=== PATIENT | male | born 1955 | race Caucasian/White ===

== ENCOUNTER 2018-03-25 16:07 | Outpatient (CLI) | payer MEDICAID, SELFPAY ==
[2018-03-25 16:30] LABS: Abs Immature Grans 0.04 k/cumm (0.0-0.09); Absolute Basophil Count 0.03 k/cumm (0.0-0.2); Absolute Eosinophil Count 0.07 k/cumm (0.0-0.7); Absolute Lymphocyte Count 1.36 k/cumm (1.2-3.4); Absolute Monocyte Count 0.53 k/cumm (0.11-0.7); Absolute Neutrophil Count 6.01 k/cumm (1.2-6.7); Basophils % 0.4; Eosinophils % 0.9; HGB 14.5 g/dL (13.5-17.5); Immature Grans % 0.5; Lymphocytes % 16.9; Mean Corpuscular Hemoglobin 29.1 pg (27.0-33.0); Mean Corpuscular Volume 88.2 fL (80-95); Mean Platelet Volume 10.4 fL (8.0-11.0); Monocytes % 6.6; Neutrophils % 74.7; Platelet Count 151 x1000/uL (130-400); RBC 4.99 m/cumm (4.50-6.00); RBC Distribution Width 14.1 % (11.8-14.1); White Blood Cell Count 8.04 k/cumm (4.4-10.8)
[2018-03-25 17:47] LABS: ALT 47 U/L (12-78); AST 24 U/L (15-37); Albumin 4.1 g/dL (3.4-5.0); Alkaline Phosphatase 81 U/L (46-116); Anion Gap 9.1 mmol/L (3-11); BUN 18 mg/dL (7-18); Bilirubin, Total 0.3 mg/dL (0.2-1.0); CO2 31.9 mmol/L (21.0-32.0); CREATININE 1.05 mg/dL (0.70-1.30); Calcium 9.3 mg/dL (8.5-10.1); Chloride 101 mmol/L (98-107); Glucose 88 mg/dL (70-100); Sodium 142 mmol/L (136-145); Total Protein 7.9 g/dL (6.4-8.2)
== END 2018-03-25 16:27 ==
PROVIDERS: PCP Family Medicine; Visit Provider Family Medicine
DX: Z01.812 Encounter for preprocedural laboratory examination (principal)
CPT/HCPCS: 36415; 80048; 80076; 85025

== ENCOUNTER 2018-03-25 17:48 | Outpatient (CLI) | payer MEDICAID, SELFPAY ==
--- NOTE | 2018-03-25 15:29 | PFT_ITS ---
REQUESTING PROVIDER: Mian Quintana M.D. Spirometry shows borderline mild obstructive airways disease which may represent a normal variant. No significant bronchodilator response. Lung volumes show no evidence of restriction. Diffusion capacity mildly reduced even when corrected to alveolar volume. Airways resistance normal. IMPRESSION: Possible borderline mild obstructive airways disease. However, this may represent a normal variant. There is no bronchodilator response. This is associated with very mild diffusion defect. Clinical correlation recommended. See scanned document for images. SEE SCANNED DOCUMENT IN THE EMR FOR DATA AND GRAPHS
[2018-03-26] MEDS: Inhaler, Assist Device 1 EACH MC (10:50)
[2018-03-26] MEDS: Albuterol HFA 18 GM 200 PUFF INH IH (10:50)
== END 2018-03-25 18:08 ==
PROVIDERS: PCP Family Medicine; Visit Provider Family Medicine
DX: R69 Illness, unspecified (principal); Z01.818 Encounter for other preprocedural examination

== ENCOUNTER 2018-03-26 01:12 | Outpatient (CLI) | payer MEDICAID, SELFPAY ==
--- NOTE | 2018-03-26 09:30 | DI.RAD_ITS ---
SYMPTOMS/DIAGNOSIS: PRE OP EXAM, Z01.818 PA AND LATERAL CHEST: Comparison 05/29/16. The heart size and pulmonary vasculature are within normal limits. The lungs are clear. They do appear to be hyperinflated with flattened diaphragms suggesting underlying COPD. No infiltrates, effusions or pneumothoraces are identified. Degenerative changes are present in the spine. IMPRESSION: COPD. No acute pulmonary process.
== END 2018-03-26 01:32 ==
PROVIDERS: PCP Family Medicine; Visit Provider Family Medicine
DX: J44.9 Chronic obstructive pulmonary disease, unspecified (principal); Z01.818 Encounter for other preprocedural examination
CPT/HCPCS: 94060; 94150; 94726; 94729; 71046

== ENCOUNTER 2018-12-13 21:05 | Emergency (ER) | payer SELFPAY ==
[2018-12-13] VITALS (25 sets, daily range): BP systolic 128–158; BP diastolic 57–81; PULSE 49–104; RESP 13–46; TEMP 36.8; O2SAT 94–98
--- NOTE | 2018-12-13 21:13 | W.ED.GENAD ---
Discharge Plan Disposition Patient Disposition: HOME Discharge Details Chief Complaint: Trauma Clinical Impression: Altered mental status, Opiate misuse, Contusion of left eyelid and periocular area Primary Care Provider: Mian Quintana ED Provider: Dann Spain Meds and New Rx's Prescriptions: Continued diltiazem HCl 120 mg capsule,extended release 24hr 240 mg PO DAILY RF: 0 cyclobenzaprine 10 mg tablet 10 mg PO TID PRN Qty: 30 RF: 3 Discharge Instructions Additional Instructions: There are no broken bones in your face. No evidence of bleed in head. You should avoid alcohol and drugs. Follow up with PCP as well as with [facility]. Return to ED if neurological changes, trouble breathing, other problems. Referrals: Mian Quintana [Primary Care Provider] - Medical Decision Making Patient with evidence of head injury with GCS of 13. Unclear if due to head injury or due to substance use. Pupils are reactive and equal. He is non-focal otherwise. He will not leave a collar on. Very difficult to get an IV due to agitation when trying. Eventually got one in the left AC. Patient ordered for labs, EKG and scans. 23:15 - Patient's scans are essentially negative. Head CT is negative. Facial CT without fracture. Cervical spine negative for fracture. Chest with questionable opacities that might be related to pulmonary contusion. Respiratory rate and saturations are good. No evidence of chest trauma other than old bruise. Labs are unremarkable. Alcohol is 0. Urine not yet obtained to check drug screen. Patient continues to just sleep here, as well as refusing to answer questions for the most part. Vital signs remain normal. 03:15 - Patient did finally urinate. U/A is negative. Drug screen positive for opiates and methadone. Mental status seems a little better. Will continue to observe for return to normal mental status. 07:00 - Patient awakes easily and answers questions until asked but substance use then closes eyes and stops answering questions. He also doesn't answer questions about what happened. He does go to [facility] for methadone. Patient's vitals have been fine including saturations. He has had no respiratory difficulty at all. Patient can be discharged at this time. Medical Records Medical records reviewed: Yes I reviewed the patient's medical records. Lab Data Lab results reviewed: Yes I reviewed the patient's lab results. ECG Data Attestation: I personally reviewed and interpreted this ECG (s) as follows: Prior ECG tracings: not available for review Interpretation: Sinus rhythm at 62 with normal axis and interval. No acute changes. HPI General Mode of arrival: wheelchair. Date/Time Provider Initiated Documentation: 12/13/18 21:06. Limitations to Documentation: altered mental status. Information obtained by: patient. HPI Narrative: Patient was dropped off by private vehicle as a trauma. No further details available. Patient is brought in in a wheelchair. He is awake and somewhat verbal. States he woke up this way. Unable to tell us what happened. Has large left eye ecchymosis and swelling. Does not answer whether he had been using drugs or alcohol last night or today. Old records state that he has a previous history of polysubstance abuse including IV drugs. Related Data Home Medications Medication Instructions Recorded Confirmed diltiazem CD 120 mg 240 mg PO DAILY cap 03/08/18 03/25/18 capsule,extended release 24 hr cyclobenzaprine 10 mg tablet 10 mg PO TID PRN #30 tab 04/08/18 Previous Rx's Medication Instructions Recorded cyclobenzaprine 10 mg tablet 10 mg PO TID PRN #30 tab 04/08/18 Allergies Allergy/AdvReac Type Severity Reaction Status Date / Time codeine Allergy Unknown itchy/red Unverified 03/25/18 13:39 Sulfa (Sulfonamide Allergy Unknown Unverified 03/25/18 13:39 Antibiotics) Review of Systems Review of Systems Unobtainable due to mental status [facility] Medical History HTN (hypertension) (Chronic) Hepatitis C (Chronic) Neuropathy (Chronic) Surgical History H/O cervical spine surgery (Chronic) S/P hernia repair (Inactive) Family History Mother Essential hypertension Neoplasm Father No problems noted. Sister No problems noted. Grandfather No problems noted. Grandfather No problems noted. Grandmother Heart disease Grandmother Neoplasm Social History Smoking/Tobacco Use Status: Current every day Tobacco Type: cigarettes Alcohol Intake: current Drug use: Current Sobriety Substance use type: former substance user Date of last use: IVDU,HEROIN current occupation: Landlord Pets and animals: No Frequency: does not exercise Xiomara/Yarsanism: Buddhist Special xiomara needs: No Do you feel safe in your relationship?: Yes Exam Narrative Exam Narrative: Vitals: Afebrile. Mild tachycardia with elevated blood pressure. Const: WDWN male in wheelchair seemingly confused. HEENT: NC/AT. TMs clear B. Nose without epistaxis. L eye ecchymosis and swelling. Oropharynx with poor dentition. No obvious oral trauma. Eyes: Normal conjunctiva and sclera. Pupils about 3 mm and reactive/equal. Neck: Supple. Trachea midline. No cervical spine tenderness. Scar from previous surgery. Lungs: Normal respiratory effort. Lungs are clear. No chest wall tenderness. Old bruising noted. Cor: RRR without murmur/gallop. Good radial pulses. GI: Soft. NT/ND. No guarding or rebound. Back: No spine tenderness or obvious trauma. Neuro: GCS 13. Follows some commands and answers some questions. CN appear to be intact and he has 5/5 strength. Ext: No C/C/E. No deformity or tenderness. Track wilson bilateral UE. Skin: Warm and dry without lacerations/abrasions noted.
[2018-12-13 21:30] LABS: Abs Immature Grans 0.01 k/cumm (0.0-0.09); Absolute Basophil Count 0.01 k/cumm (0.0-0.2); Absolute Eosinophil Count 0.01 k/cumm (0.0-0.7); Absolute Lymphocyte Count 0.67 k/cumm (1.2-3.4); Absolute Monocyte Count 1.11 k/cumm (0.11-0.7); Absolute Neutrophil Count 9.74 k/cumm (1.2-6.7); Basophils % 0.1; Eosinophils % 0.1; HCT 46.3 % (40.0-50.0); HGB 15.7 g/dL (13.5-17.5); Immature Grans % 0.1; Lymphocytes % 5.8; Mean Corp. HGB Concentration 33.9 g/dL (32.0-36.0); Mean Corpuscular Hemoglobin 28.6 pg (27.0-33.0); Mean Corpuscular Volume 84.5 fL (80-95); Monocytes % 9.6; Neutrophils % 84.3; Platelet Count 174 x1000/uL (130-400); RBC 5.48 m/cumm (4.50-6.00); RBC Distribution Width 13.3 % (11.8-14.1); White Blood Cell Count 11.55 k/cumm (4.4-10.8)
[2018-12-13 21:42] LABS: Magnesium 2.4 mg/dL (1.8-2.4)
[2018-12-13 21:47] LABS: ALT 49 U/L (12-78); AST 43 U/L (15-37); Albumin 4.3 g/dL (3.4-5.0); Alkaline Phosphatase 88 U/L (46-116); Anion Gap 12.4 mmol/L (3-11); BUN 27 mg/dL (7-18); Bilirubin, Total 1.7 mg/dL (0.2-1.0); CO2 27.6 mmol/L (21.0-32.0); CREATININE 1.14 mg/dL (0.70-1.30); Calcium 9.7 mg/dL (8.5-10.1); Chloride 100 mmol/L (98-107); Glucose 103 mg/dL (70-100); Potassium 4.2 mmol/L (3.5-5.1); Sodium 140 mmol/L (136-145); Total Protein 8.8 g/dL (6.4-8.2); Troponin I 0.02 ng/mL (0.00-0.06)
[2018-12-13 21:55] LABS: ETHANOL BLOOD < 3.0 mg/dL (<3)
[2018-12-13] MEDS: Omnipaque 350 MG/ML 100 ML BTL IJ (22:09)
--- NOTE | 2018-12-13 22:10 | DI.CT_ITS ---
SYMPTOMS/DIAGNOSIS: UNKNOWN TRAUMA NONCONTRAST HEAD CT: Comparison is made with May,. There is some scalp swelling over the left frontal region, as well as some swelling around the left orbit. There is no evidence of skull fracture. The globe appears intact. No intracranial hemorrhage, mass or infarct is seen. The ventricles are normal in size. The sinuses appear clear. Incidental note is made of a partially empty sella. The mastoid air cells appear clear. IMPRESSION: No acute abnormality. FACIAL CT: There is soft tissue swelling around the left orbit, forehead and left cheek. No fracture is identified. There is mild mucosal thickening of the floors of the maxillary sinuses. IMPRESSION: Soft tissue swelling around the left orbit. CT OF THE CERVICAL SPINE: There is no evidence of a fracture. There is hardware of the posterior elements at C3 through C5. There are prominent anteriorly projecting osteophytes. No acute fracture is seen. There is mild narrowing of the central canal at C5-6. There is bilateral neural foraminal narrowing at multiple levels. IMPRESSION: Degenerative and postsurgical changes. No acute abnormality. CT OF THE CHEST, ABDOMEN AND PELVIS: IV contrast was administered prior to the exam. CHEST CT: There is no evidence of rib fracture or pneumothorax. The lungs show some respiratory motion. There are a few patchy areas near the left hilum, which could represent pulmonary contusion, atelectasis or pneumonia. There are no pleural or pericardial effusions or evidence of adenopathy. The heart size is normal. The aorta is normal in diameter. Degenerative changes are seen in the spine. IMPRESSION: Right perihilar contusion versus infiltrate or atelectasis. ABDOMINAL AND PELVIC CT: There is artifact related to patient arm positioning. The liver, spleen, pancreas, kidneys and adrenals appear intact. A cyst is noted in the left kidney. There is no hydronephrosis or perinephric collection. Diverticulosis is seen in the rectosigmoid. There is no evidence of diverticulitis or appendicitis. There is no free air or free fluid. The bladder is unremarkable. The aorta is normal in diameter. Degenerative disc changes and facet degenerative changes are seen in the lumbar spine. IMPRESSION: No acute abnormality.
[2018-12-13] MEDS: Lactated Ringers 1,000 ML 1000 ML IV (22:14)
[2018-12-13] MEDS: Normal Saline Flush 10 ML SYR IVP (22:14)
--- NOTE | 2018-12-13 22:31 | DI.VRAD_ITS ---
EXAM: CT Head Without Contrast EXAM DATE/TIME: 12/13/2018 9:16 PM CLINICAL HISTORY: 63 years old, male; Injury or trauma; Injury history: Unknown trauma; Initial encounter; Blunt trauma (contusions or hematomas); Consciousness not specified; Eyelid and nose and ocular (eye or eyeball) and orbit/periorbital; Injury details: No known details TECHNIQUE: Imaging protocol: Axial computed tomography images of the head without contrast. Coronal and sagittal reformatted images were created and reviewed. Radiation optimization: All CT scans at this facility use at least one of these dose optimization techniques: automated exposure control; mA and/or kV adjustment per patient size (includes targeted exams where dose is matched to clinical indication); or iterative reconstruction. COMPARISON: CT HEAD AND CSPINE W/O CONTRAST 05/29/2016 12:01 PM FINDINGS: Brain: Mild nonspecific bilateral basal ganglia calcifications. Ventricles: Normal. No ventriculomegaly. Bones/joints: Unremarkable. No acute fracture. Sinuses: Visualized sinuses are unremarkable. No fluid levels. Mastoid air cells: Visualized mastoid air cells are well aerated. No mastoid effusion. Orbits: Partial empty sella with CSF signal fluid filling more than half of the sella and associated decreased pituitary volume with a concave superior surface. Partial empty sella syndrome is an incidental chronic finding which is usually asymptomatic, however it can be associated with idiopathic intracranial hypertension. Soft tissues: Unremarkable. Vasculature: Moderate calcified intracranial atherosclerotic vessel disease. IMPRESSION: Partial empty sella with CSF signal fluid filling more than half of the sella and associated decreased pituitary volume with a concave superior surface. Partial empty sella syndrome is an incidental chronic finding which is usually asymptomatic, however it can be associated with idiopathic intracranial hypertension. No acute intracranial findings. EXAM: CT Maxillofacial Without Contrast EXAM DATE/TIME: 12/13/2018 9:16 PM CLINICAL HISTORY: 63 years old, male; Injury or trauma; Injury history: Unknown trauma; Initial encounter; Blunt trauma (contusions or hematomas); Consciousness not specified; Eyelid and nose and ocular (eye or eyeball) and orbit/periorbital; Injury details: No known details TECHNIQUE: Imaging protocol: Axial computed tomography images of the face without intravenous contrast. Coronal and sagittal reformatted images were created and reviewed. Radiation optimization: All CT scans at this facility use at least one of these dose optimization techniques: automated exposure control; mA and/or kV adjustment per patient size (includes targeted exams where dose is matched to clinical indication); or iterative reconstruction. COMPARISON: CT HEAD AND CSPINE W/O CONTRAST 05/29/2016 12:01 PM FINDINGS: Orbits: No acute intraorbital abnormality. Globes are unremarkable. Sinuses: Mild right maxillary sinus disease which is probably odontogenic. Bones/joints: No acute fracture. Soft tissues: Soft tissue swelling and/or hematoma over the left cheek, orbit and forehead. IMPRESSION: 1. Soft tissue swelling and/or hematoma over the left cheek, orbit and forehead. 2. Mild right maxillary sinus disease which is probably odontogenic. EXAM: CT Cervical Spine Without Contrast EXAM DATE/TIME: 12/13/2018 9:16 PM CLINICAL HISTORY: 63 years old, male; Injury or trauma; Injury history: Unknown trauma; Initial encounter; Blunt trauma (contusions or hematomas); Consciousness not specified; Eyelid and nose and ocular (eye or eyeball) and orbit/periorbital; Injury details: No known details TECHNIQUE: Imaging protocol: Axial computed tomography images of the cervical spine without contrast. Coronal and sagittal reformatted images were created and reviewed. Radiation optimization: All CT scans at this facility use at least one of these dose optimization techniques: automated exposure control; mA and/or kV adjustment per patient size (includes targeted exams where dose is matched to clinical indication); or iterative reconstruction. COMPARISON: CT HEAD AND CSPINE W/O CONTRAST 05/29/2016 12:01 PM FINDINGS: Vertebrae: Mild levoscoliosis. Postoperative metallic fixation of the cervical spine with or without metallic artifact. Discs/Spinal canal/Neural foramina: No acute C-spine findings. Central spinal stenosis at C5-6. Multilevel bilateral foraminal stenosis. Soft tissues: Unremarkable. Trachea: Moderate to severe multilevel degenerative changes including degenerative disc disease, spondylosis and facet degenerative changes. Lungs: Lung apices are normal. IMPRESSION: 1. No acute C-spine findings. 2. Postoperative metallic fixation of the cervical spine with or without metallic artifact. 3. Moderate to severe multilevel degenerative changes including degenerative disc disease, spondylosis and facet degenerative changes. 4. Central spinal stenosis at C5-6. 5. Multilevel bilateral foraminal stenosis. Dictated and Authenticated by: Sina Metz MD. Ordering:RAUL Quigley MD
--- NOTE | 2018-12-13 22:52 | DI.VRAD_ITS ---
EXAM: CT Chest With Contrast EXAM DATE/TIME: 12/13/2018 9:16 PM CLINICAL HISTORY: 63 years old, male; Injury or trauma; Injury history: Unknown trauma; Initial encounter; Generalized; Blunt trauma (contusions or hematomas); Injury details: No known details TECHNIQUE: Imaging protocol: Axial computed tomography images of the chest with intravenous contrast. Coronal and sagittal reformatted images were created and reviewed. Radiation optimization: All CT scans at this facility use at least one of these dose optimization techniques: automated exposure control; mA and/or kV adjustment per patient size (includes targeted exams where dose is matched to clinical indication); or iterative reconstruction. COMPARISON: CT ABD PELVIS WITH CONTRAST 09/27/2012 11:58 AM FINDINGS: Lungs: Opacities in the right lower lobe in in the right perihilar region may represent contusion. (27:32, 33). Pleural space: Unremarkable. No pneumothorax. No pleural effusion. Heart: Unremarkable. No cardiomegaly. No pericardial effusion. Aorta: Unremarkable. No aortic aneurysm. Lymph nodes: Unremarkable. No enlarged lymph nodes. Bones/joints: Unremarkable. No acute fracture. Soft tissues: Unremarkable. IMPRESSION: Opacities in the right lower lobe and in the right perihilar region may represent contusion. (27:32, 33). EXAM: CT Abdomen and Pelvis With Contrast EXAM DATE/TIME: 12/13/2018 9:16 PM CLINICAL HISTORY: 63 years old, male; Injury or trauma; Injury history: Unknown trauma; Initial encounter; Generalized; Blunt trauma (contusions or hematomas); Injury details: No known details TECHNIQUE: Imaging protocol: Axial computed tomography images of the abdomen and pelvis with intravenous contrast. Coronal and sagittal reformatted images were created and reviewed. Radiation optimization: All CT scans at this facility use at least one of these dose optimization techniques: automated exposure control; mA and/or kV adjustment per patient size (includes targeted exams where dose is matched to clinical indication); or iterative reconstruction. Contrast material: [id number]; Contrast volume: 100 ml; Contrast route: IV 20G LT AC; COMPARISON: CT ABD PELVIS WITH CONTRAST 09/27/2012 11:58 AM FINDINGS: ABDOMEN: Liver: Normal. No mass. Gallbladder and bile ducts: Normal. No calcified stones. No ductal dilation. Pancreas: Normal. No ductal dilation. Spleen: Normal. No splenomegaly. Adrenals: Normal. No mass. Kidneys and ureters: 2.5 cm cyst in the left kidney Stomach and bowel: Diverticulosis of the rectosigmoid. No diverticulitis. Appendix: No evidence of appendicitis. PELVIS: Bladder: Unremarkable as visualized. Reproductive: Unremarkable as visualized. ABDOMEN and PELVIS: Intraperitoneal space: Normal. No free air. No significant fluid collection. Bones/joints: Mild anteriolisthesis of L4 with respect L5. Broad-based disc bulge, facet hypertrophy, and ligament hypertrophy at L4/L5 consistent with spinal stenosis. Recommend MRI for further evaluation. Broad-based disc bulge at L3/L4. Soft tissues: Unremarkable. Vasculature: Normal. No abdominal aortic aneurysm. Lymph nodes: Normal. No enlarged lymph nodes. IMPRESSION: 1. Broad-based disc bulge, facet hypertrophy, and ligament hypertrophy at L4/L5 consistent with spinal stenosis. Recommend MRI for further evaluation. 2. Broad-based disc bulge at L3/L4. Recommend MRI if clinically indicated Dictated and Authenticated by: Elisabeth Hairston MD. Ordering:RAUL Quigley MD
[2018-12-14] VITALS (48 sets, daily range): BP systolic 108–154; BP diastolic 52–111; PULSE 50–101; RESP 9–25; TEMP 36.5; O2SAT 93–100
[2018-12-14 02:33] LABS: Bilirubin Small (Negative); Blood Trace-intact (Negative); Clarity Clear; Glucose Negative (Negative); Ketones 80 mg/dL (Negative); Leukocyte Esterase Negative (Negative); Nitrite Negative (Negative)
[2018-12-14 02:39] LABS: *AMPHETAMINES SCREEN URINE Negative (Negative); *BARBITURATES SCREEN URINE Negative (Negative); *BENZODIAZEPINES SCREEN URINE Negative (Negative); Cannabinoids THC Negative (Negative); Cocaine Screen,Urine Negative (Negative); METHADONE URINE SCREEN POSITIVE (Negative); OPIATES URINE SCREEN POSITIVE (Negative)
[2018-12-14 02:41] LABS: Bacteria Rare HPF (Negative); C & S Indicated? No; Casts Negative LPF (Negative); Crystals Negative HPF (Negative); Epithelial Cells Rare HPF (Negative); Mucus Negative (Negative); RBC 0-2 (0-2); WBC 0-2 HPF (0-5)
[2018-12-14 02:42] LABS: Tricyclic Antidepressants Negative (Negative)
--- NOTE | 2018-12-14 08:44 | NUR.NOTE ---
pt dc home ambulatory steady gait iv removed vs dc reviewed with pt able to verblize understanding Nursing Note:
== END 2018-12-14 08:25 | disposition home or self-care (01) ==
PROVIDERS: Emergency Provider Emergency Medicine; PCP Family Medicine
DX: R41.82 Altered mental status, unspecified (principal); F11.10 Opioid abuse, uncomplicated; S00.12XA Contusion of left eyelid and periocular area, initial encounter; X58.XXXA Exposure to other specified factors, initial encounter; I10 Essential (primary) hypertension
CPT/HCPCS: 36415; 74177; 80053; 80307; 93005; 96360; 99285; 70450; 70486; 71260; 72125; 80320; 81003; 81015; 83735; 84484; 85025; 93010; J3490